=== PATIENT | female | born 1995 | race Caucasian/White ===

== ENCOUNTER 2023-01-28 22:35 | Emergency (ER) | payer BC, OTHER ==
[2023-01-28] MEDS ORDERED: Amoxicillin/Potassium Clav 875 MG TAB ONE (22:52)
== END 2023-01-28 23:00 | disposition home or self-care (01) ==
LOC: NAV ERS 22:35
DX: J02.9 Acute pharyngitis, unspecified (principal); H92.03 Otalgia, bilateral; E11.9 Type 2 diabetes mellitus without complications
CPT/HCPCS: 99282

== ENCOUNTER 2023-09-02 20:59 | Emergency (ER) | payer OTHER ==
[2023-09-02] MEDS ORDERED: Benzonatate 100 MG CAP ONE (21:17)
[2023-09-02] MEDS ORDERED: Sodium Chloride 0.9% 1,000 ML ONE (21:17)
[2023-09-02] MEDS ORDERED: Ibuprofen 800 MG TAB ONE (21:33)
[2023-09-02 21:36] LABS: #Basophils 0.1 thou/uL (0.0-0.2); #Eosinphils 0.3 thou/uL (0.0-0.7); #Lymphocytes 2.3 thou/uL (1.20-3.40); #Monocytes 0.7 thou/uL (0.11-0.59); #Neutrophils 5.7 thou/uL (1.40-6.50); %Basophils 1.3 % (0.0-1.0); %Eosinophils 3.4 % (0.0-10.0); %Lymphocytes 25.2 % (21.0-51.0); %Monocytes 7.5 % (0.0-10.0); %Neutrophils 62.7 % (42.0-75.0); Hematocrit 43.7 % (36.0-47.0); Hemoglobin 14.2 g/dL (12.0-16.0); Mean Corpuscular HGB CONC 32.6 g/dL (32.0-36.0); Mean Corpuscular Hemoglobin 27.2 pg (27.0-31.0); Mean Corpuscular Volume 83.5 fl (78.0-98.0); Mean Platelet Volume 8.9 fL (7.4-10.4); Platelet Count 234 10x3/uL (130-400); Red Blood Cell (RBC) Count 5.23 mill/uL (4.20-5.40); White Blood Cell (WBC) Count 9.1 10x3/uL (4.8-10.8)
[2023-09-02 21:37] LABS: Bilirubin Negative (Negative); Blood, Urine Negative (Negative); Clarity Clear (Clear); Glucose, Urine (Dipstick) Negative (Negative); Ketone, Urine Trace mg/dL (Negative); Leukocyte Negative (Negative); Nitrite Negative (Negative); Protein, Urine (Dipstick) Negative (Neg-Trace); Specific Gravity, Urine 1.028 (1.002-1.036)
[2023-09-02 21:38] LABS: Bacteria/HPF None Seen HPF (None Seen); CAUTI Indications for Culture Fever or rigors; RBC/HPF 0-3 HPF (0-3); WBC/HPF 0-3 HPF (0-3)
[2023-09-02 21:39] LABS: Urine Culture Reflex No No
[2023-09-02 21:50] LABS: ALT (SGPT) 25 U/L (8-55); AST (SGOT) 19 U/L (5-34); Albumin 4.5 g/dL (3.5-5.0); Alkaline Phosphatase 65 U/L (40-110); Anion Gap 15 mmol/L (10-20); BUN (Urea Nitrogen) 17 mg/dL (7.0-18.7); Bilirubin, Total 0.7 mg/dL (0.2-1.2); Calc. Creatinine Clearance 0 mL/min (70-130); Calcium 9.7 mg/dL (7.8-10.44); Carbon Dioxide 24 mmol/L (22-29); Chloride 104 mmol/L (98-107); Estimated GFR 119; Glucose 101 mg/dL (70-105); Potassium 4.2 mmol/L (3.5-5.1); Protein, Total 8.5 g/dL (6.0-8.3); Sodium 139 mmol/L (136-145)
== END 2023-09-02 23:00 | disposition home or self-care (01) ==
LOC: NAV ERS 20:59
DX: B34.9 Viral infection, unspecified (principal); E78.5 Hyperlipidemia, unspecified; Z79.899 Other long term (current) drug therapy
CPT/HCPCS: 71046; 80053; 81001; 85025; 87635; 87804; 96360; J7050

== ENCOUNTER 2024-01-11 14:37 | Emergency (ER) | payer OTHER ==
[2024-01-11 17:15] LABS: Bilirubin Negative (Negative); Blood, Urine Negative (Negative); Clarity Clear (Clear); Glucose, Urine (Dipstick) Negative (Negative); Ketone, Urine Negative (Negative); Leukocyte Negative (Negative); Nitrite Negative (Negative); Protein, Urine (Dipstick) Negative (Neg-Trace); Urobilinogen 0.2 mg/dL (Less than 2)
[2024-01-11 17:16] LABS: Bacteria/HPF Rare-Few HPF (None Seen); CAUTI Indications for Culture Dysuria,urgency,freq; RBC/HPF 0-3 HPF (0-3); Specific Gravity, Urine 1.002 (1.002-1.036); Squamous Epithelial 0-3 HPF (0-3); WBC/HPF 0-3 HPF (0-3)
[2024-01-11 17:17] LABS: Urine Culture Reflex No No
[2024-01-11 18:12] LABS: SARS-CoV-2 E Target Negative; SARS-CoV-2 N2 Target Negative; SARS-CoV-2 NAA Rapid Test Not Detected (NotDetected); SARS-CoV-2 RdRP gene Negative
== END 2024-01-11 18:05 | disposition home or self-care (01) ==
LOC: NAV ERS 14:37
DX: J06.9 Acute upper respiratory infection, unspecified (principal); R50.9 Fever, unspecified; E11.9 Type 2 diabetes mellitus without complications
CPT/HCPCS: 81001; 87804; 99283; U0002

== ENCOUNTER 2025-06-01 12:07 | Emergency (ER) | payer OTHER | END 2025-06-01 13:10 | disposition home or self-care (01) | LOC: NAV ERS 12:07 | DX: J02.9 Acute pharyngitis, unspecified (principal); E11.9 Type 2 diabetes mellitus without complications; F17.210 Nicotine dependence, cigarettes, uncomplicated | CPT/HCPCS: 87081; 87430; 99283 ==